=== PATIENT | male | born 1935 | race Caucasian/White ===

== ENCOUNTER 2016-11-20 10:51 | Outpatient (CLI) | payer MEDICARE, BC ==
--- NOTE | 2016-11-20 13:52 | RAD ---
TWO VIEWS OF THE CHEST Date: 11-20-16 Comparison: 10-16-16 History: Cough and congestion. FINDINGS: Stable prominence of the cardiac silhouette. Stable single lead transvenous pacing device. There i s no pneumothorax, pleural fluid, focal consolidation or alveolar edema. Upper lobe emphysematous changes are noted, stable. Stable mild diffuse interstitial density. The lungs are mildly hyperinflated. There is multilevel disc space narrowing and anterior osteophyt e formation within the mid thoracic spine. IMPRESSION: Stable chronic findings as above. No lobar consolidation or alveolar edema. POS: H
== END 2016-11-20 10:52 | disposition home or self-care (01) ==
LOC: NAV RAD 10:51
PROVIDERS: ATTEND Family Medicine
DX: R05 Cough (principal)
CPT/HCPCS: 71020